=== PATIENT | female | born 1965 | race Caucasian/White ===

== ENCOUNTER → 2020-09-29 | Outpatient (CLI) | payer BC | LOC: LAB 10:28 | DX: M79.672 Pain in left foot (principal); Z20.822 Contact with and (suspected) exposure to COVID-19 ==

== ENCOUNTER 2020-12-04 14:03 | Outpatient (RCR) | payer BC | END 2021-03-04 | disposition home or self-care (01) | LOC: PT | DX: M54.12 Radiculopathy, cervical region (principal) ==

== ENCOUNTER → 2021-01-25 | Outpatient (CLI) | payer BC | LOC: RAD 18:49 | DX: S39.011A Strain of muscle, fascia and tendon of abdomen, initial encounter (principal) ==

== ENCOUNTER → 2021-03-29 | Outpatient (CLI) | payer BC | LOC: RAD 13:54 | DX: Z09 Encounter for follow-up examination after completed treatment for conditions other than malignant neoplasm (principal); M43.22 Fusion of spine, cervical region; M40.50 Lordosis, unspecified, site unspecified ==

== ENCOUNTER → 2021-07-13 | Outpatient (CLI) | payer BC ==
[2021-07-13 16:11] LABS: BASO # 0.03 K/mm3 (0.02-0.10); EOS # 0.07 K/mm3 (0.04-0.40); HEMATOCRIT 43.1 % (37.0-47.0); HEMOGLOBIN 14.3 g/dL (12.5-16.0); LYMPH# 1.69 K/mm3 (1.50-4.00); MEAN CELL VOLUME 89 fl (78-100); MEAN CORPUSCULAR HEMOGLOBIN 29 pg (27-31); MEAN CORPUSCULAR HGB CONC 33 g/dL (33-37); MEAN PLATELET VOLUME 8.9 fl (7.4-10.4); MONO # 0.42 K/mm3 (0.20-0.80); NEU # 4.65 K/mm3 (1.40-6.50); PLATELET COUNT 248 K/mm3 (130-400); RED BLOOD COUNT 4.87 M/mm3 (4.10-5.30); RED CELL DISTRIBUTION WIDTH 12.5 % (11.5-14.5); WHITE BLOOD COUNT 6.9 K/mm3 (4.8-10.8)
== END ==
LOC: LAB 15:54
PROVIDERS: Nurse Practitioner Family
DX: D64.9 Anemia, unspecified (principal)

== ENCOUNTER → 2022-01-09 | Outpatient (CLI) | payer BC ==
[~2022-01-09] VITALS: Ht 162.6 cm; Wt 79.5 kg
[~2022-01-09] MED LIST: BUPROPION HCL200 M1 PO; CLONAZEPAM0.25 MG PO; LAMICTAL 100MG100 MG PO; LAMICTAL 25MG T25 MG PO; LIPITOR20 M2 PO; NOVAPLUS DE100 MG/ML IM; OMEPRAZOLE40 MG PO; PREMARIN 225 MG/VIAL IM; PRISTIQ50 M1 PO; PROGESTERONE100 MG PO; TRIAMTERENE AND1 CAP PO; ZESTRIL40 M1 PO
[2022-01-09 12:47] VITALS: BP 118/73
[2022-01-09 13:02] VITALS: BP 115/73
[2022-01-09 14:00] VITALS: BP 107/80
[2022-01-09 15:00] VITALS: BP 127/81
[2022-01-09 15:34] LABS: URINE APPEARANCE HAZY; URINE BILIRUBIN NEGATIVE (NEGATIVE); URINE BLOOD NEGATIVE (NEGATIVE); URINE COLOR YELLOW; URINE GLUCOSE NEGATIVE (NEGATIVE); URINE KETONE NEGATIVE (NEGATIVE); URINE LEUKOCYTE ESTERASE NEGATIVE (NEGATIVE); URINE NITRATE NEGATIVE (NEGATIVE); URINE PROTEIN(semi-quant) 1+ (NEGATIVE); URINE UROBILINOGEN NORMAL (NORMAL)
[2022-01-09 15:35] LABS: URINE MUCUS PRESENT (NOT PRESENT)
== END ==
LOC: LAB 12:12 → AMSURD 12:12
PROVIDERS: Nurse Practitioner Family
DX: A08.4 Viral intestinal infection, unspecified (principal); R30.0 Dysuria; R11.2 Nausea with vomiting, unspecified
CPT/HCPCS: J7030